=== PATIENT | female | born 1950 | race Caucasian/White ===

== ENCOUNTER → 2017-07-27 | Day surgery (SDC) | payer OTHER ==
--- NOTE | 2017-07-28 15:37 | PATH ---
Surgical Pathology Report Patient Name: MOISES PEARL [facility]. Rec. #: [id number] /Age/Gender: 1950 (Age: 66) / F Account: [id number] Location: Taken: 07/27/2017 Received: 07/27/2017 Reported: 07/28/2017 Physicians: Ana Valdez M.D. Specimen(s) Received LEFT BREAST ENHANCING LESION LOWER REGION CORE BIOPSY Clinical History Ultrasound findings: Suspicious Recently diagnosed right breast cancer, enhancing lesion lower region left breast Final Diagnosis BREAST, LEFT, ENHANCING LESION LOWER REGION, CORE BIOPSY: ATYPICAL DUCTAL HYPERPLASIA (ADH) ARISING IN ASSOCIATION WITH PROLIFERATIVE FIBROCYSTIC CHANGES INCLUDING USUAL AND PAPILLARY DUCTAL HYPERPLASIA, MICROCYST FORMATION WITH APOCRINE METAPLASIA AND FEW ASSOCIATED CALCIFICATIONS. Electronically Signed Tina Barnes M.D. Gross Description Received in formalin labeled "left breast," is a 2.4 x 2.3 x 0.3 cm aggregate of multiple hough-yellow, irregular to cylindrical portions of fibroadipose tissue. The formalin is filtered and the specimen is entirely submitted in one cassette. Time to formalin fixation: 2 minutes Total formalin fixation time: Approximately 6 hours. 07/27/2017 [place]07/27/2017
== END | disposition home or self-care (01) ==
LOC: FRADUS-SUR 09:58
PROVIDERS: ATTEND Surgery Surgical Oncology
PROC: 0HBU3ZX Excision of Left Breast, Percutaneous Approach, Diagnostic (ICD-10-PCS; principal; 2017-07-27)
DX: N60.12 Diffuse cystic mastopathy of left breast (principal); N63 Unspecified lump in breast; N60.82 Other benign mammary dysplasias of left breast; N64.89 Other specified disorders of breast
CPT/HCPCS: 19085; 88305-TC; A4648; C1887; G0206-TC

== ENCOUNTER 2017-08-17 06:52 | Day surgery (SDC) | payer OTHER, BC ==
--- NOTE | 2017-08-06 10:19 | HP ---
Admitting History and Physical - Primary Care Physician PCP: Arturo Andrew - Admission Chief Complaint: Right breast cancer, left breast atypia History of Present Illness: 66 year old postmenapausal nulliparous female with screening mammogram and US showing 2.1 cm spiculated mass right breast 12:00 05/2017. Right breastUs core biopsy at 12:00 showed invasive ductal carcinoma 06/2017. Mri breast 06/2017 showed newly diagnosed right breast cancer and suspicious enhancement left breast 5 to 7:00 with negative targeted US. MRI core biopsy left breast showed atypia. History Source: Patient Limitations to Obtaining History: No Limitations - Past Medical History Cardiovascular: Yes: [place] (2010) Additional Past Medical History: Vulvar cancer at age 48 - Past Surgical History Past Surgical History: Yes: Stent (S/P [place] 2010) Additional Past Surgical History: Vulvar cancer S/P excision and inguinal node dissection with LLE lymphadema at age 48 - Smoking History Smoking history: Former smoker (quit at 48) Have you smoked in the past 12 months: No - Alcohol/Substance Use Hx Alcohol Use: No Home Medications - Allergies Allergies/Adverse Reactions: Allergies Allergy/AdvReac Type Severity Reaction Status Date / Time Penicillins Allergy Verified 08/06/17 10:20 - Home Medications Home Medications (free text): metoprolol ER simvastatin Family Disease History - Family Disease History Family Disease History: CA: Father (CRC) Physical Examination Constitutional: Yes: Well Nourished Breast(s): Yes: Other (assymetrical breast with left being larger than right ptotic D cup left right C cup. 12:00 density right breast no adenopathy or palpable densities left breast post biopsy changes bilaterally) Problem List - Problems (1) Breast cancer, right breast Code(s): C50.911 - MALIGNANT NEOPLASM OF UNSP SITE OF RIGHT FEMALE BREAST Qualifiers: Breast location: overlapping sites of breast Patient sex: female (2) Atypical ductal hyperplasia of left breast Code(s): N60.92 - UNSPECIFIED BENIGN MAMMARY DYSPLASIA OF LEFT BREAST Assessment/Plan Right breast wide excision sentenel node biopsy mammogram needle localization, lymphoscintogram intraop radiation and possible dissection, left breast wide excision with mammogram needle localization
[2017-08-11 13:42] VITALS: BMI 30.7
[2017-08-17] MEDS ORDERED: ISOSULFAN BLUE 10 MG/ML VIAL SQ ONE (12:49)
[2017-08-17] MEDS ORDERED: BUPIVACAINE HCL/PF 2.5 MG/ML - 30 ML VIAL IJ ONE (12:49)
[2017-08-17] MEDS ORDERED: KETOROLAC TROMETHAMINE 30 MG/1 ML VIAL IVPUSH PRN (13:17)
[2017-08-17] MEDS ORDERED: ONDANSETRON 4 MG/2 ML VIAL IVPB PRN (13:17)
[2017-08-17] MEDS ORDERED: DEXTROSE 5%-0.45% SALINE 1,000 ML IV SCH (13:30)
[2017-08-17] MEDS ORDERED: BUPIVACAINE HCL/PF 0.25% (2.5MG/ML) 10 ML VIAL IJ ONE (14:41)
[2017-08-17] MEDS ORDERED: oxyCODONE HCL 5 MG TABLET PO PRN ×2 (17:05)
[2017-08-17] MEDS ORDERED: KETOROLAC TROMETHAMINE 30 MG/1 ML VIAL ONE (17:07)
[2017-08-17] MEDS ORDERED: LACTATED RINGERS SOLUTION 1,000 ML IV SCH (17:15)
[2017-08-17] MEDS ORDERED: ONDANSETRON 4 MG/2 ML VIAL ONE (17:20)
[2017-08-17 18:25] VITALS: TEMP 98.2
[2017-08-17 19:05] VITALS: BP 136/67; PULSE 71
--- NOTE | 2017-08-18 14:56 | OP ---
DATE OF OPERATION: 08/17/2017 PREOPERATIVE DIAGNOSIS: Right breast cancer, 12 o'clock, overlapping regions, with left breast atypia. PROCEDURE: Right breast partial mastectomy with mammographic needle localization and right axillary sentinel lymph node biopsy with intraoperative radiation and left breast wide excision with mammographic needle localization. PRIMARY SURGEON: Nerissa Andrew MD CUSTODIAL FOREMAN: DIVINE Yang ANESTHESIA: General anesthesia. COMPLICATIONS: There were no complications. INDICATIONS: Briefly, the patient is a 66-year-old nulliparous postmenopausal white female of [place] and [place] descent with no family history of breast or ovarian cancer. She underwent a mammography showing a spiculated density in the 12 o'clock region of the right breast. An ultrasound showed a 2.1-cm irregular density, and ultrasound-guided core biopsy showed a low-grade infiltrating ductal cancer, which was ER/PA positive, HER2/malik negative, with a Ki-67 of 10%. She underwent an MRI showing the 2-cm mass in the right breast 12 o'clock region as well as some suspicious enhancement of the left breast 5 to 7 o'clock region. An MRI-guided core biopsy of the left breast performed on July 27, 2017, showed some atypical duct hyperplasia. The patient was advised on undergoing a right breast wide excision with sentinel lymph node biopsy and a left breast wide excision for the atypia with mammographic needle localizations. She was seen by radiation oncology preoperatively and was a good candidate for the [employer] trial and was entered for intraoperative radiation. DESCRIPTION OF PROCEDURE: The patient was brought in for the procedure on August 17, 2017. She first underwent bilateral needle localizations for the clips in question and a lymphoscintigraphy at [facility], then was brought to the [place] holding area. In the holding area, site verification was made and informed consent was obtained. She was brought into the operating room and laid on the OR table in the supine position. Venodynes were placed on the lower extremities prior to induction, and she received 1 g of Ancef prior to incision. Both breasts were sterilely prepped and draped in the usual fashion with the wires prepped in the field. Then, 3 mL of lymphazurin blue were injected intradermally and peritumorally around the right breast needle localization site. She underwent general anesthesia. At this point, the right breast axillary sentinel lymph node biopsy was first performed. An incision was made just below the hair-bearing area and dissection was undertaken. Unfortunately, the radioactive dye did not travel well into the right axilla, and there was no discrete hot focus. There was, however, blue lymphatics coursing to a blue hot node in the level 1 region of the right axilla, and this was easily found and sent to Pathology as sentinel lymph node No. 1 in the right axilla. Further dissection showed no further blue or hot nodes, but there was a slightly enlarged node in the level 1 region of the right axilla, which was sent separately as right axillary sentinel lymph node, which was non-sentinel. These were both sent to Pathology in formalin for permanent section. At this point, hemostasis was achieved, and the axillary wound was closed using interrupted 2-0 plain suture, then interrupted 3-0 deep dermal Vicryl suture, and a running 4-0 subcuticular Monocryl suture. The wide excision was then undertaken around the right breast needle localization site. A small ellipse of skin was removed around the 12 o'clock region of the right breast just above the nipple areolar complex. A crescent-shaped incision was made, and dissection was undertaken around the needle localization site all the way down to the pectoralis major muscle. The wire was completely removed with the specimen with the wire within it. The specimen was oriented with a long-lateral short-superior suture, and specimen radiograph showed removal of the clip in question. Hemostasis was achieved. The breast tissue was then shaved at the margins and separate margins were taken on the superior, inferior, medial, lateral, deep, and anterior margins, with sutures marking the biopsy cavity side, and these were all sent to Pathology as separate margins. Hemostasis was achieved. At this time, intraoperative radiation was accomplished by pursestringing the breast tissue around a 4.5-cm Intrabeam device, which was placed sterilely into the wound, and the pursestring was tied down, bringing the tissue in approximation along the Intrabeam device. Ultrasound was used to confirm distance from the skin at greater than 1 cm in all quadrants. Intraoperative radiation was then accomplished after about 36 minutes. After intraoperative radiation, the device was removed. Hemostasis was achieved, and the breast tissue was reapproximated using a 4 x 3 cm tissue transfer closure to close the defect. The breast tissue was reapproximated using 2-0 plain suture. The skin was closed using interrupted 3-0 deep dermal Vicryl suture and a running 4-0 subcuticular Biosyn suture. Mastisol and Steri-Strips were applied over the wound. At this point, the left breast was approached. Separate instruments were used. Incision was made in a curvilinear fashion just outside the nipple areolar complex towards the upper inner aspect of the left breast. Dissection was undertaken, and the breast tissue was completely removed from around the wire all the way down to the pectoralis major muscle. The specimens were incised with the wire intact within the specimen and were oriented with a long-lateral short-superior suture. Specimen radiograph showed removal of the clip in question. Hemostasis was achieved. The breast parenchyma was then reapproximated using 2-0 plain suture, and the skin was closed using interrupted 3-0 deep dermal Vicryl suture and a running 4-0 subcuticular Monocryl suture. Mastisol and Steri-Strips were applied over the wounds. A compression dressing was placed over this. She was placed in a surgical bra postoperatively. The patient was extubated at the end of the case and brought to the post-anesthesia care unit in stable condition. She will be discharged home the same day once her discharge criteria are met. She is to follow up in the office in one week for formal wound pathology check. All sponge and needle counts were correct at the end of the case, and estimated blood loss was about 20 mL. NERISSA ANDREW M.D. [id number]
--- NOTE | 2017-08-19 00:38 | OP ---
DATE OF OPERATION: 08/17/2017 PREOPERATIVE DIAGNOSIS: Right breast cancer. POSTOPERATIVE DIAGNOSIS: Right breast cancer. PROCEDURE: Post lumpectomy, intraoperative radiation therapy for right breast cancer. ATTENDING SURGEON: Arturo Andrew M.D. ELECTRICAL JOURNEYMAN/RADIATION ONCOLOGIST: Oli Wood M.D. ANESTHESIA: General. COMPLICATIONS: None. INDICATION: The patient is a 66-year-old woman with a clinical stage 1 invasive ductal carcinoma of the right breast who elected to enroll on the [facility] trial for intraoperative radiation therapy. She also has ADH on the left and will undergo bilateral wide excisions. PROCEDURE: Dr. Andrew performed the right lumpectomy and sentinel lymph node biopsy, which he has dictated. After excision of additional margins, the lumpectomy cavity was prepared and sized with a 4.5-cm diameter applicator. The applicator was placed into the surgical cavity and the surrounding tissues were cinched around the applicator with a Vicryl pursestring suture. I performed a clinical simulation to ensure that the applicator was located within the operative bed with close opposition of the surrounding breast tissue to the surface of the applicator. I also ensured there was an adequate distance between the applicator and chest wall and the skin by ultrasound measurements which showed a minimum distance of 2 cm at the 12 o'clock aspect. Additional precautions were taken by placing saline soaked gauze between the skin and breast tissue. Shielding material was then placed over the breast to reduce scatter radiation. The patient received a total dose of 20 Gy prescribed at 0 mm from the applicator surface with 50 kV x-rays using the Intrabeam system. Prior to treatment, the system was checked and double checked with appropriate physics quality coordinator measures. The total time required for the treatment was 36 minutes 50 seconds. When the treatment was completed, a survey of the patient and room confirmed that the Intrabeam source was off. There were no complications or unexpected interruptions. Dr. Andrew removed the radiation applicator from the patient and completed the surgery. The patient will be discharged to recovery room following surgery. OLI WOOD M.D. [id number]
--- NOTE | 2017-08-20 16:14 | PATH ---
Surgical Pathology Report Patient Name: MOISES PEARL [facility]. Rec. #: [id number] /Age/Gender: 1950 (Age: 66) / F Account: [id number] Location[facility] Taken: 08/17/2017 Received: 08/17/2017 Reported: 08/20/2017 Physicians: Arturo Andrew M.D. Specimen(s) Received A: RIGHT BREAST AXILLARY SENTINEL NODE #1 B: RIGHT AXILLARY NON SENTINEL NODE C: RIGHT BREAST WIDE EXCISION D: RIGHT BREAST MEDIAL MARGIN E: RIGHT BREAST SUPERIOR MARGIN F: RIGHT BREAST DEEP MARGIN G: RIGHT BREAST ANTERIOR MARGIN H: RIGHT BREAST INFERIOR MARGIN I: RIGHT BREAST LATERAL MARGIN J: LEFT BREAST WIDE EXCISION Clinical History Right IDC Left atypia Final Diagnosis A. LYMPH NODE, RIGHT AXILLARY SENTINEL #1, EXCISION: ONE LYMPH NODE, NEGATIVE FOR METASTATIC CARCINOMA (0/1). B. LYMPH NODE, RIGHT AXILLARY NON-SENTINEL, EXCISION: TWO LYMPH NODES, NEGATIVE FOR METASTATIC CARCINOMA (0/2). C. BREAST, RIGHT, WIDE EXCISION: INVASIVE DUCTAL CARCINOMA, WELL-DIFFERENTIATED (TUBULE SCORE: 1/3, NUCLEAR GRADE: 2/3, MITOTIC SCORE: 1/3; TOTAL DARLEEN SCORE: 4/9), MEASURING 1.8 CM IN GREATEST DIMENSION, MICROSCOPICALLY. FOCAL DUCTAL CARCINOMA IN SITU (DCIS), CRIBRIFORM TYPE, INTERMEDIATE NUCLEAR GRADE. SURGICAL MARGINS ARE UNINVOLVED BY CARCINOMA; CARCINOMA IS AT 5 MM FROM THE CLOSEST (MEDIAL) MARGIN. SEE SPECIMENS D-I FOR FINAL MARGINS. SKIN IS PRESENT AND IS UNINVOLVED BY CARCINOMA. NO LYMPHOVASCULAR INVASION IS IDENTIFIED. PRIOR BIOPSY SITE CHANGES ARE PRESENT. PATHOLOGIC STAGE (pTNM):pT1c pN0. SEE ALSO INVASIVE CARCINOMA CASE SUMMARY BELOW. D. BREAST, RIGHT, MEDIAL MARGIN, EXCISION: BENIGN BREAST TISSUE. E. BREAST, RIGHT, SUPERIOR MARGIN, EXCISION: BENIGN BREAST TISSUE. F. BREAST, RIGHT, DEEP MARGIN, EXCISION: BENIGN BREAST TISSUE. G. BREAST, RIGHT, ANTERIOR MARGIN, EXCISION: BENIGN BREAST TISSUE. H. BREAST, RIGHT, INFERIOR MARGIN, EXCISION: BENIGN BREAST TISSUE. I. BREAST, RIGHT, LATERAL MARGIN, EXCISION: BENIGN BREAST TISSUE. J. BREAST, LEFT, WIDE EXCISION: FOCAL ATYPICAL LOBULAR HYPERPLASIA (ALH), COLUMNAR CELL CHANGES, SCLEROSING ADENOSIS, USUAL DUCTAL HYPERPLASIA (UDH) AND ASSOCIATED CALCIFICATIONS. (SEE NOTE) PRIOR BIOPSY SITE CHANGES ARE PRESENT. Note: The foci of ALH are negative for E-cadherin, which supports lobular phenotype. Comments Breast Invasive Carcinoma: Surgical Pathology Cancer Case Summary Based on AJCC/UICC TNM, 7th edition Procedure _X_ Excision with image-guided localization Lymph Node Sampling _X_ [place] lymph node(s) Specimen Laterality _X_ Right Tumor Size: Size of Largest Invasive Carcinoma: 1.8 cm Tumor Focality _X_ Single focus of invasive carcinoma Macroscopic and Microscopic Extent of Tumor Skin _X_ Invasive carcinoma does not invade into the dermis or epidermis Nipple _X_ Not applicable (excisions less than total mastectomy) Ductal Carcinoma In Situ (DCIS) _X_ DCIS is present _X_ as a minor component (< 25% of tumor) Histologic Type of Invasive Carcinoma : _X_ Invasive carcinoma of no special type (ductal, not otherwise specified) Histologic Grade: (Paris Histologic Score) Tubular Differentiation _X_ Score 1 Nuclear Pleomorphism _X_ Score 2 Mitotic Rate _X_ Score 1 Overall Grade _X_ Grade 1: scores of 3, 4, or 5 (well differentiated) Margins _X_ Margins uninvolved by invasive carcinoma Distance from closest margin: 5 mm from medial margin in wide excision. Final medial margin D is negative for carcinoma. _X_ Margins uninvolved by DCIS Distance from closest margin:1 cm from deep margin in wide excision C. Final deep margin F is negative for DCIS. Lymph-Vascular Invasion _X_ Not identified Lymph Nodes Total number of lymph nodes examined (sentinel and nonsentinel): 3 Number of sentinel lymph nodes examined: 1 Number of lymph nodes with macrometastases ( > 2 mm): 0 Number of lymph nodes with micrometastases (>0.2 mm to 2 mm and/or >200cells):0 Number of lymph nodes with isolated tumor cells (=0.2 mm and =200 cells):0 Extranodal Extension _X_ Not applicable Pathologic Staging (pTNM) Primary Tumor (Invasive Carcinoma): pT1c Regional Lymph Nodes (pN): pN0(sn) Biomarker Studies Results of ER and OH studies performed on this specimen (block C1) at [facility] are as follows: ER (clone [id number] mouse monoclonal antibody by [employer]) : >90 % nuclear staining with strong intensity (Positive). OH (clone16 mouse monoclonal antibody by [employer]): > 90 % nuclear staining with strong intensity (Positive). Results of Her2 & Ki67 studies will be reported separately in an addendum. Positive and negative controls (internal if applicable) show appropriate results. Formalin fixation and cold ischemic times are within current ASCO/CAP recommendations for ER, OH and Her2 testing. Electronically Signed Tina Barnes M.D. Addendum Reported: 08/24/2017 Addendum Diagnosis Results of Her2 (IHC) & Ki-67 studies performed on block C1 at [place], [place] ([id number]) are as follows: Her2 IHC (EP3 from [employer], formerly known as [id number], using [employer] Polymer Refine detection kit): 0 (Negative). Ki-67: ~10% (Low proliferative index). Positive and negative controls (internal if applicable) show appropriate results. Gross Description A. Received in formalin labeled "right axillary sentinel node #1," is a 0.9 x 0.6 x 0.3 cm hough, irregular lymph node. The specimen is submitted in toto in one cassette. B. Received in formalin labeled "right axillary non-sentinel node," are 2 hough, irregular lymph nodes measuring 0.7 x 0.6 x 0.4 cm and 1.4 x 0.7 x 0.5 cm. The lymph nodes are bisected and entirely submitted in 2 cassettes as follows: 1-2-one whole bisected lymph node each. C. Received in formalin, labeled "right breast wide excision," is a 7.4 x 5.3 x 4.4 cm. ohugh-yellow, irregular, portion of fibroadipose tissue with a needle localization wire present. There is a short suture marking the superior aspect and a long suture marking the lateral aspect, per the surgeon. The anterior surface displays a 2.2 x 0.3 cm hough, elliptical, unremarkable portion of skin. The specimen is inked as follows: Superior blue; inferior green; lateral red; medial yellow; deep black. The specimen is serially sectioned from superior to inferior. Sectioning reveals a 2.3 x 1.8 x 1.5 cm hough, firm mass focally at 0.6 cm from the medial margin, 0.9 cm from the deep margin and 1.1 cm from the lateral margin. The remaining margins appear widely clear of the mass. [employer] sections are submitted in 9 cassettes as follows: 1-one full-face section of mass; 2-3-mass with medial margin; 4-5-deep margin; 6-superior margin; 7-lateral margin; 8-skin; 9-inferior margin. Time to formalin fixation: 26 minutes Total formalin fixation time: Approximately 27 hours. D. Received in formalin labeled "medial margin right breast," is a 2.4 x 1.7 x 0.6 cm irregular portion of fibroadipose tissue with a suture marking the biopsy cavity side, per the surgeon. The new margin is inked blue and the specimen is serially sectioned. The specimen is entirely submitted in 3 cassettes. E. Received in formalin labeled "superior margin right breast," is a 2.3 x 2.0 x 0.9 cm irregular portion of fibroadipose tissue with a suture marking the biopsy cavity side, per the surgeon. The new margin is inked blue and the specimen is serially sectioned. The specimen is entirely submitted in 3 cassettes. F. Received in formalin labeled "deep margin right breast," is a 2.6 x 1.8 x 1.0 cm irregular portion of fibroadipose tissue with a suture marking the biopsy cavity side, per the surgeon. The new margin is inked blue and the specimen is serially sectioned. The specimen is entirely submitted in 3 cassettes. G. Received in formalin labeled "anterior margin right breast," is a 2.8 x 1.8 x 0.8 cm irregular portion of fibroadipose tissue with a suture marking the biopsy cavity side, per the surgeon. The new margin is inked blue and the specimen is serially sectioned. The specimen is entirely submitted in 3 cassettes. H. Received in formalin labeled "inferior margin right breast," is a 2.8 x 2.0 x 0.8 cm irregular portion of fibroadipose tissue with a suture marking the biopsy cavity side, per the surgeon. The new margin is inked blue and the specimen is serially sectioned. The specimen is entirely submitted in 3 cassettes I. Received in formalin labeled "lateral margin right breast," is a 2.4 x 2.1 x 0.5 cm irregular portion of fibroadipose tissue with a suture marking the biopsy cavity side, per the surgeon. The new margin is inked blue and the specimen is serially sectioned. The specimen is entirely submitted in 2 cassettes. J. Received in formalin, labeled "left breast wide excision," is a 5.3 x 4.4 x 2.3 cm. hough-yellow, irregular, portion of fibroadipose tissue with a needle localization wire present. There is a short suture marking the superior aspect and a long suture marking the lateral aspect, per the surgeon. There is no skin present. The specimen is inked as follows: superior and lateral blue; inferior green; medial yellow; anterior red; deep black. The specimen is serially sectioned from medial to lateral. Sectioning reveals a focus of hemorrhage surrounded by abundant dense, white, firm fibrous tissue. A focus of hemorrhage displays a canela metallic biopsy clip. The remaining breast parenchyma displays abundant focally firm fibrous tissue. No definitive mass is identified. [employer] sections are submitted in 12 cassettes as follows: 1-section with biopsy clip (with superior, anterior and deep margins); 2-5-cihmnntkhc firm /fibrous tissue each with superior, anterior and deep margins; 7-7-hztsioymmd fibrous tissue with anterior margin; 10-inferior margin; 11-medial margin; 12-lateral margin. Time to formalin fixation: 26 minutes Total formalin fixation time: Approximately 27 hours. 08/18/[address] [facility]08/18/2017
== END 2017-08-17 19:00 | disposition home or self-care (01) ==
LOC: FASU 06:52
PROVIDERS: ATTEND Surgery Surgical Oncology
PROC: 0HBV0ZZ Excision of Bilateral Breast, Open Approach (ICD-10-PCS; principal; 2017-08-17 13:32)
PROC: DMY17ZZ Contact Radiation of Right Breast (ICD-10-PCS; 2017-08-17 13:32)
DX: C50.811 Malignant neoplasm of overlapping sites of right female breast (principal); N62 Hypertrophy of breast; N60.22 Fibroadenosis of left breast; N60.82 Other benign mammary dysplasias of left breast; N64.89 Other specified disorders of breast; Z87.891 Personal history of nicotine dependence; Z85.44 Personal history of malignant neoplasm of other female genital organs; I25.2 Old myocardial infarction
CPT/HCPCS: 19281; 76641-TC-50; 77290; 77316; 77332; 77370-TC; 77424; 78195-TC; 88307-TC; 88342-TC; 94760; A9541; C9726